=== PATIENT | female | born 1940 | race Caucasian/White ===

== ENCOUNTER → 2018-11-29 | Emergency (ER) | payer MEDICARE, OTHER ==
[~2018-11-29] VITALS: Ht 152.4 cm; Wt 39.7 kg
[~2018-11-29] MED LIST: NAPR-985 PO
[2018-11-29 14:28] VITALS: BP 117/58; PULSE 58; RESP 18; Ht 152.4 cm; Wt 39.7 kg
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
== END | disposition home or self-care (01) ==
LOC: FTE 14:25
DX: M54.2 Cervicalgia (principal)
CPT/HCPCS: 72040